=== PATIENT | female | born 1965 | race Caucasian/White ===

== ENCOUNTER 2020-12-10 00:07 | Day surgery (SDC) | payer BC, SELFPAY ==
[2020-11-25 14:53] VITALS: BMI 33.0
[2020-12-10 09:24] VITALS: BP 147/95; PULSE 62; RESP 16; TEMP 36.1; O2SAT 99; BMI 32.2
[2020-12-10] MEDS: LACTATED RINGERS 1,000 ML 150 ML IV CONT (09:31)
--- NOTE | 2020-12-10 09:36 | P.PNAN_ITS ---
Anes - Initial Pre Proc Eval Procedure: Operation Date: 12/10/20 10:15 Proposed Procedures p Screening Colonoscopy - Israel Givens MD Date/Time: 12/10/20 09:36 Surgeon: Israel Givens MD Pre Op Diagnosis: neoplasm screening Patient Data Age: 55 Gender: F Height: 1.57 m Weight: 80 kg Last Vital Signs Temp 36.1 C L 12/10/20 09:24 Pulse 62 12/10/20 09:24 Resp 16 12/10/20 09:24 BP 147/95 H 12/10/20 09:24 Pulse Ox 99 12/10/20 09:24 Allergies Allergy/AdvReac Type Severity Reaction Status Date / Time No Known Allergies Allergy Verified 12/10/20 09:22 Home Medications Medication Instructions Recorded Confirmed Type hydrochlorothiazide 25 mg PO DAILY 11/25/20 12/10/20 History metoprolol tartrate 50 mg PO BID 11/25/20 12/10/20 History Patient hx anesthesia problems: none Family hx anesthesia problems: none [facility] Past Medical History Medical History Hypertension Surgical History Surgical History H/O kidney donation Social History Social History Smoking status: Never smoker Alcohol intake: current Alcohol use details: socially Substance use: never Substance use type: does not use Living arrangements: with family Spiritual care concerns: No Anes - Eval Final PreProcedure Day of Procedure 12/10/20 09:36 Patient weight: obese Heart: regular rate and rhythm Lungs: clear to auscultation Airway: Mallampati scale class II Neurological: alert and oriented Last oral intake: >/= 8 hours ASA classification: II Emergent: no Anesthetic plan: proceed Anesthesia type and monitoring: general GIVS and standard monitoring Informed Consent: The patient's anesthetic plan and its attendant risks and benefits were discussed with the patient/family/POA. Questions were solicited and answers provided to the satisfaction of the patient/family/POA.
--- NOTE | 2020-12-10 09:42 | P.HP_ITS ---
History of Present Illness History of Present Illness Consent: Risks, benefits, and alternatives have been discussed and questions answered. Patient agrees to proceed with procedure. Chief complaint: neoplasm screening Narrative: Letha Starks is a 55 year old female here for first screening colonoscopy Review of Systems Constitutional: Constitutional: Denies headache(s) and Denies weakness Eyes: Eyes: Denies blurry vision ENT: Reports Normal hearing present, Denies headache(s) and Denies neck pain Cardiovascular: Cardiovascular: Denies chest pain and Denies dyspnea Respiratory: Respiratory: Denies dyspnea Gastrointestinal: Gastrointestinal: Reports no additional gastrointestinal complaints Genitourinary: Genitourinary: Denies dysuria Musculoskeletal: Musculoskeletal: Denies neck pain Integumentary/Breasts: Skin/Breast: Denies dry skin Neurologic: Reports Normal hearing present, Denies headache(s) and Denies weakness Psychiatric: Psychiatric: Denies anxiety Endocrine: Endocrine: Denies change in body appearance Hematologic/Lymphatic: Hematologic/Lymphatic: Denies easy bleeding Allergic/Immunologic: Allergic/Immunologic: Denies urticaria [facility] Past Medical History Medical History (Updated 12/10/20 @ 09:42 by Israel Givens MD) Colon cancer screening Hypertension Surgical History Surgical History H/O kidney donation Social History Social History Smoking status: Never smoker Alcohol intake: current Alcohol use details: socially Substance use: never Substance use type: does not use Living arrangements: with family Spiritual care concerns: No Meds Home Medications and Allergies Home Medications Medication Instructions Recorded Confirmed Type hydrochlorothiazide 25 mg PO DAILY 11/25/20 12/10/20 History metoprolol tartrate 50 mg PO BID 11/25/20 12/10/20 History Allergies Allergy/AdvReac Type Severity Reaction Status Date / Time No Known Allergies Allergy Verified 12/10/20 09:22 Vital Signs Vital Signs - 24 hr 12/10/20 09:24 Temperature 97 F L Pulse Rate 62 Respiratory Rate 16 Blood Pressure 147/95 H Pulse Oximetry 99 Exam Const: General: comfortable and no acute distress HENMT: General nose exam: Normal nares present Eyes: General: appearance normal, both eyes and all related structures Neck: Neck: no JVD Resp: Auscultation: clear to auscultation bilaterally Cardio: Rate: regular rate Rhythm: regular rhythm GI: Inspection: non-distended GI Palp: Yes Soft to palpation Skin: General skin exam: normal color Neuro: General: gait normal Speech: normal speech Extrem: General: normal to inspection Psych: Mental Status: mental status grossly normal Assessment and Plan Assessment and plan (1) Colon cancer screening: Code(s): Z12.11 - Encounter for screening for malignant neoplasm of colon Status: Acute Assessment and Plan: colonoscopy
[2020-12-10 10:08] VITALS: BP 90/44; PULSE 61; RESP 22; O2SAT 100
[2020-12-10 10:18] VITALS: BP 93/64; PULSE 57; RESP 22; O2SAT 100
[2020-12-10 10:28] VITALS: BP 120/78; PULSE 55; RESP 22; O2SAT 100
== END 2020-12-10 10:49 | disposition home or self-care (01) ==
PROVIDERS: PCP Nurse Practitioner Family; Visit Provider Internal Medicine Gastroenterology
PROC: 0DJD8ZZ Inspection of Lower Intestinal Tract, Via Natural or Artificial Opening Endoscopic (ICD-10-PCS; CPT 45378; principal; 2020-12-10 10:15)
DX: Z12.11 Encounter for screening for malignant neoplasm of colon (principal); D12.3 Benign neoplasm of transverse colon; K63.5 Polyp of colon; I10 Essential (primary) hypertension; Z52.4 Kidney donor; K57.30 Diverticulosis of large intestine without perforation or abscess without bleeding; K64.8 Other hemorrhoids
CPT/HCPCS: 45385; 45380; 88305; 88342; J2704; J7120

== ENCOUNTER 2021-06-08 11:09 | Outpatient (CLI) | payer BC, SELFPAY ==
--- NOTE | 2021-06-08 | ECG_ITS ---
Measurements Intervals [place] Rate: 60 P: 30 TN: 192 QRS: -36 QRSD: 106 T: 30 QT: 437 QTc: 438 Interpretive Statements SINUS RHYTHM LEFT AXIS DEVIATION VOLTAGE CRITERIA FOR LVH MINIMAL Q WAVES- HIGH LATERAL LEADS BASELINE WANDER- V1 BORDERLINE ECG Electronically Signed On 06-08-2021 11:56:30 [employer] by Christopher Mckeon D.O.
== END 2021-06-08 11:10 | disposition home or self-care (01) ==
PROVIDERS: PCP Nurse Practitioner Family; Visit Provider Nurse Practitioner Family
DX: Z01.818 Encounter for other preprocedural examination (principal); R94.31 Abnormal electrocardiogram [ECG] [EKG]
CPT/HCPCS: 93005